=== PATIENT | female | born 2005 | race Native Hawaiian/Other Pacific Islander ===

== ENCOUNTER 2024-04-22 11:00 | Emergency (ER) | payer OTHER ==
[~2024-04-22] VITALS: Ht 154.9 cm; Wt 60.7 kg
[2024-04-22] MEDS ORDERED: BENZ200C70 PO (15:19)
[2024-04-22 15:34] VITALS: BP 117/77; TEMP 96.4; O2SAT 100
== END 2024-04-22 15:35 | disposition home or self-care (01) ==
LOC: M ED 11:00
DX: U07.1 COVID-19 (principal); Z79.899 Other long term (current) drug therapy

== ENCOUNTER 2025-07-28 23:30 | Emergency (ER) | payer OTHER ==
[~2025-07-28] VITALS: Ht 154.9 cm; Wt 64.0 kg
[~2025-07-28 23:30] MED LIST: BENZ200C70 PO
[2025-07-29] MEDS: ACETAMINOPHEN *IV* 1,000 MG in IV 1 EA IV ONE (00:28)
[2025-07-29] MEDS ORDERED: ISOVUE-370 76% 100 ML VIAL As Ordered ONE (00:39)
[2025-07-29 00:52] LABS: BASO # 0.1 10^3/uL (0.0-0.2); BASO % 0.9 % (0.0-1.0); EOS # 0.2 10^3/uL (0.0-0.5); EOS % 2.8 % (0.0-3.0); LYMPH # 2.3 10^3/uL (1.5-5.0); LYMPH % 30.5 % (24.0-44.0); MONO # 0.6 10^3/uL (0.0-0.8); MONO % 8.3 % (2.0-8.0); NEUTROPHILS # 4.3 10^3/uL (1.5-8.5); NEUTROPHILS % 57.1 % (36.0-66.0); PLATELET COUNT, AUTOMATED 375 10^3/uL (150-450)
[2025-07-29 01:08] LABS: ALT/SGPT 88 U/L (7.0-40); AST/SGOT 65 U/L (<34); CALCIUM LEVEL 9.0 MG/DL (8.5-10.1); CARBON DIOXIDE LEVEL 26 MMOL/L (20-31); CHLORIDE LEVEL 104 MMOL/L (98-107); CREATININE FOR GFR 0.63 MG/DL (0.55-1.30); GLOMERULAR FILTRATION RATE > 90.0 (>60); POTASSIUM SERUM 4.2 MMOL/L (3.5-5.1); SODIUM LEVEL 141 MMOL/L (136-145)
[2025-07-29 01:36] LABS: INR 0.89
[2025-07-29 01:49] LABS: KETONE, URINE AUTO RFX NEGATIVE (NEGATIVE); LEUKOCYTE ESTERASE UR AUTO RFX NEGATIVE (NEGATIVE); NITRITE, URINE AUTO RFX NEGATIVE (NEGATIVE); RBC, URINE AUTO RFX 1 /HPF (0-3); SQUAM EPITHELIAL CELL UR AURFX 8 /HPF (0-6); WBC, URINE AUTO RFX 1 /HPF (0-3)
[2025-07-29 05:15] VITALS: BP 112/76; TEMP 97.8; O2SAT 97
== END 2025-07-29 05:40 | disposition home or self-care (01) ==
LOC: M ED 23:30
DX: R10.9 Unspecified abdominal pain (principal); Z87.828 Personal history of other (healed) physical injury and trauma; Z79.899 Other long term (current) drug therapy
CPT/HCPCS: 71046; 74174; 80047; 80048; 80076; 81001; 83605; 83690; 85014; 85018; 85025; 85610; 85730; 86850; 86900; 86901; 93041; 96365; 96366; 99285; J0134; Q9967